=== PATIENT | female | born 1980 | race Caucasian/White ===

== ENCOUNTER 2019-10-22 18:28 | Emergency (ER) | payer OTHER ==
[2019-10-22 19:01] VITALS: BP 167/69; PULSE 94
[2019-10-22] MEDS ORDERED: Furosemide 40 MG Tab PO ONE ×2 (20:07→20:08)
--- NOTE | 2019-10-22 20:11 | EDM.PDOC ---
ED HPI GENERAL MEDICAL PROBLEM - General Chief Complaint: Lower Extremity Injury/Pain Stated Complaint: RETAINING FLUIDS IN BOTH LEGS Time Seen by Provider: 10/22/19 20:00 Source of Information: Reports: Patient, Family History Limitations: Reports: No Limitations - History of Present Illness INITIAL COMMENTS - FREE TEXT/NARRATIVE: 39-year-old female, morbid obesity and insulin-dependent type 2 diabetes has had increased swelling in her lower extremities for the past 3 days. She admits that she has been eating [employer] food with salt. This has not happened in the past, no fevers or chills, no nausea or vomiting, no illness, no trauma. Onset: Gradual Duration: Day(s): (3 days) Location: Reports: Lower Extremity, Left, Lower Extremity, Right Associated Symptoms: Denies: Chest Pain, Loss of Appetite, Malaise, Nausea/ Vomiting, Shortness of Breath Bilateral Leg Pain Score (Numeric/FACES): 7 - Related Data Allergies Allergy/AdvReac Type Severity Reaction Status Date / Time gentamicin [Gentamicin] Allergy Mild BURNING Verified 10/22/19 19:28 AND RED EYES Home Meds: Home Meds Gabapentin [Neurontin] 600 mg PO BID 01/10/15 [History] Lisinopril 20 mg PO BID 01/10/15 [History] Naproxen Sodium [Aleve] 220 - 440 mg PO BID PRN 01/10/15 [History] Omeprazole [Prilosec] 20 mg PO DAILY 01/10/15 [History] Simvastatin [Zocor] 40 mg PO BEDTIME 01/10/15 [History] metFORMIN [Glucophage] 1,000 mg PO BIDMEALS 01/10/15 [History] Insulin Glargine,Hum.Rec.Anlog [Basaglar Kwikpen U-100] 1 injection SQ DAILY 02/05 [History] amLODIPine [Norvasc] 1 tab PO DAILY 10/22/19 [History] atorvaSTATin [Lipitor] 1 tab PO DAILY 10/22/19 [History] azaTHIOprine [Imuran] 1 tab PO BID 10/22/19 [History] Past Medical History [employer] History: Reports: Endocrine/Metabolic History: Reports: Diabetes, Type II Social & Family History - Family History Family Medical History: Noncontributory - Tobacco Use Smoking Status *Q: Never Smoker - Caffeine Use Caffeine Use: Reports: Coffee, Soda Review of Systems - Review of Systems Review Of Systems: See Below Constitutional: Denies: Fever Respiratory: Denies: Shortness of Breath Cardiovascular: Denies: Chest Pain Skin: Reports: No Symptoms Neurological: Reports: No Symptoms ED EXAM, GENERAL - Physical Exam Exam: See Below Exam Limited By: Uncooperative General Appearance: No Apparent Distress Respiratory/Chest: No Respiratory Distress, Lungs Clear Cardiovascular: Regular Rate, Rhythm GI/Abdominal: Other (Morbid obesity, nontender) Extremities: Other (She does have 1-2+ pitting edema through the feet up to the knees bilaterally. No significant popliteal tenderness or calf tenderness to palpation) Neurological: Alert, Oriented Course - Vital Signs Last Recorded V/S: Last Vital Signs Temp 97.6 F 10/22/19 19:36 Pulse 94 10/22/19 19:36 Resp 14 10/22/19 19:36 BP 167/69 H 10/22/19 19:36 Pulse Ox 97 10/22/19 19:36 - Orders/Labs/Meds Meds: Medications Discontinued Medications Generic Name Dose Route Start Last Admin Trade Name [place]yer PRN Reason Stop Dose Admin Furosemide 40 mg 10/22/19 20:07 10/22/19 20:28 Lasix PO 10/22/19 20:08 40 mg ONETIME ONE Administration Furosemide 40 mg 10/22/19 20:08 10/22/19 20:28 Lasix PO 10/22/19 20:09 40 mg ONETIME ONE Administration - Re-Assessments/Exams Free Text/Narrative Re-Assessment/Exam: 10/22/19 20:10 Patient is interested in taking diuretics for a couple of days and rechecking at home if not improving as they are leaving for home tomorrow. She was given 40 mg of Lasix, and an additional dose to take tomorrow morning and will recheck Thursday or Thursday if not improving satisfactorily. Support stockings and elevation may help. Avoid extra salt intake. Departure - Departure Time of Disposition: 20:35 Disposition: Home, Self-Care 01 Clinical Impression: Peripheral edema - Discharge Information Instructions: Peripheral Edema Referrals: PCP,None [Primary Care Provider] - Forms: ED Department Discharge Care Plan Goals: Elevate legs, compression stockings may help and take another dose of diuretic tomorrow morning. Avoid any extra salt intake and recheck Thursday or Thursday if not improving satisfactorily. Return sooner if worsening such as chest pain or difficulty breathing. Sepsis Event Note - Evaluation Sepsis Screening Result: No Definite Risk - Focused Exam Vital Signs: Vital Signs Temp Pulse Resp BP Pulse Ox 10/22/19 19:36 97.6 F 94 14 167/69 H 97 10/22/19 18:59 97.6 F 94 14 167/69 H 97 Date Exam was Performed: 10/23/19 Time Exam was Performed: 00:10
== END 2019-10-22 20:35 | disposition home or self-care (01) ==
LOC: JP.ED 18:28
DX: R60.9 Edema, unspecified (principal); E11.9 Type 2 diabetes mellitus without complications; E66.01 Morbid (severe) obesity due to excess calories; Z68.44 Body mass index [BMI] 60.0-69.9, adult; Z79.4 Long term (current) use of insulin; Z79.899 Other long term (current) drug therapy; Z88.1 Allergy status to other antibiotic agents
CPT/HCPCS: 99283; A9270